=== PATIENT | male | born 1965 | race Caucasian/White ===

== ENCOUNTER 2017-04-01 15:50 | Emergency (ER) | payer OTHER ==
[~2017-04-01 15:50] MED LIST: CIPRO PO; GLU850 PO; MEV20 PO; PROMETHAZINE D118 ML PO; TAP5 PO; ZES20 PO
== END 2017-04-01 16:37 | disposition left against medical advice (07) ==
LOC: ED 15:50
DX: Z53.21 Procedure and treatment not carried out due to patient leaving prior to being seen by health care provider (principal)

== ENCOUNTER 2017-04-02 08:46 | Emergency (ER) | payer OTHER ==
[2017-04-02 09:43] VITALS: BP 130/74
== END 2017-04-02 09:44 | disposition home or self-care (01) ==
LOC: ED 08:46
DX: G44.209 Tension-type headache, unspecified, not intractable (principal)

== ENCOUNTER 2017-08-09 07:03 | Emergency (ER) | payer OTHER ==
[~2017-08-09 07:03] MED LIST changes: +ANTIVERT12.5 MG PO; +DEC150 PO; +FIORICET1 TAB PO; +FLO4 PO; +GLYBURIDE5 MG PO; +LASIX20 MG PO; +METFORMIN ER500 M1 PO; +METFORMIN HCL500 MG PO; +MOTRIN600 MG PO; +PEP20 PO; +ROB750 PO; +SOD1 PO
== END 2017-08-09 08:28 | disposition left against medical advice (07) ==
LOC: ED 07:03
DX: Z53.21 Procedure and treatment not carried out due to patient leaving prior to being seen by health care provider (principal)

== ENCOUNTER 2017-08-10 14:13 | Emergency (ER) | payer OTHER ==
[~2017-08-10] VITALS: Ht 162.6 cm; Wt 59.4 kg
[2017-08-10 14:49] VITALS: Ht 162.6 cm; Wt 59.4 kg
[2017-08-10 21:04] VITALS: BP 135/78
== END 2017-08-10 21:04 | disposition home or self-care (01) ==
LOC: ED 14:13
DX: B34.9 Viral infection, unspecified (principal); E11.9 Type 2 diabetes mellitus without complications
CPT/HCPCS: J1100; J1885

== ENCOUNTER 2018-01-13 09:17 | Emergency (ER) | payer OTHER ==
[~2018-01-13] VITALS: Ht 160 cm; Wt 59.0 kg
[2018-01-13 09:20] VITALS: Ht 160 cm; Wt 59.0 kg
[2018-01-13 10:31] LABS: BASOPHIL % 0.8 % (0-2); PLATELET COUNT 255 x10^3mcL (130-400); RED CELL DISTRIBUTION WIDTH 13.4 % (11.5-14.5)
[2018-01-13 10:43] LABS: ALBUMIN 4.2 g/dL (3.4-5.0); ALKALINE PHOSPHATASE 84 U/L (46-116); ALT/SGPT 44 U/L (16-63); AST/SGOT 40 U/L (15-37); CALCIUM 9.6 mg/dL (8.5-10.1); CARBON DIOXIDE 29.4 mmol/L (21-32); CHLORIDE SERUM 103 mmol/L (98-107); CREATININE SERUM 0.9 mg/dL (0.7-1.3); GFR1 > 60 mL/min; GLUCOSE SERUM 112 mg/dL (74-106); SODIUM SERUM 139 mmol/L (136-145)
[2018-01-13 10:49] LABS: POTASSIUM SERUM 5.9 mmol/L (3.5-5.1); TOTAL PROTEIN, SERUM 8.5 g/dL (6.4-8.2)
[2018-01-13 11:53] VITALS: BP 154/91
== END 2018-01-13 11:53 | disposition home or self-care (01) ==
LOC: ED 09:17
PROVIDERS: Emergency Medicine
DX: G44.209 Tension-type headache, unspecified, not intractable (principal); R42 Dizziness and giddiness; R19.7 Diarrhea, unspecified; E87.5 Hyperkalemia; J02.9 Acute pharyngitis, unspecified; E11.9 Type 2 diabetes mellitus without complications
CPT/HCPCS: 20552; 36415

== ENCOUNTER 2018-06-04 19:46 | Emergency (ER) | payer OTHER ==
[~2018-06-04] VITALS: Ht 160 cm; Wt 57.6 kg
[2018-06-04 19:51] VITALS: Ht 160 cm; Wt 57.6 kg
[2018-06-04 21:14] LABS: BASOPHIL % 0.6 % (0-2); PLATELET COUNT 277 x10^3mcL (130-400); RED CELL DISTRIBUTION WIDTH 13.5 % (11.5-14.5)
[2018-06-04 21:37] LABS: CALCIUM 8.8 mg/dL (8.5-10.1); CARBON DIOXIDE 24.7 mmol/L (21-32); CHLORIDE SERUM 99 mmol/L (98-107); GFR1 > 60 mL/min; GLUCOSE SERUM 161 mg/dL (74-106); SODIUM SERUM 132 mmol/L (136-145)
[2018-06-04 21:48] LABS: ALBUMIN 3.8 g/dL (3.4-5.0); ALKALINE PHOSPHATASE 65 U/L (46-116); ALT/SGPT 29 U/L (16-63); AST/SGOT 19 U/L (15-37); TOTAL PROTEIN, SERUM 7.4 g/dL (6.4-8.2)
[2018-06-05 00:15] VITALS: BP 120/76
== END 2018-06-05 00:15 | disposition home or self-care (01) ==
LOC: ED 19:46
PROVIDERS: Emergency Medicine
DX: K59.00 Constipation, unspecified (principal); R10.12 Left upper quadrant pain; R10.32 Left lower quadrant pain; E11.9 Type 2 diabetes mellitus without complications; E78.00 Pure hypercholesterolemia, unspecified; Z79.899 Other long term (current) drug therapy
CPT/HCPCS: 83880; J1885; J3010; J8597; Q0092

== ENCOUNTER 2018-09-15 03:03 | Emergency (ER) | payer OTHER ==
[~2018-09-15] VITALS: Ht 160 cm; Wt 57.2 kg
[2018-09-15 03:06] VITALS: Ht 160 cm; Wt 57.2 kg
[2018-09-15 04:01] VITALS: BP 116/64
== END 2018-09-15 04:01 | disposition home or self-care (01) ==
LOC: ED 03:03
DX: J20.9 Acute bronchitis, unspecified (principal); M54.6 Pain in thoracic spine; E11.9 Type 2 diabetes mellitus without complications; E78.00 Pure hypercholesterolemia, unspecified
CPT/HCPCS: J7512

== ENCOUNTER 2018-10-12 16:30 | Emergency (ER) | payer OTHER ==
[~2018-10-12] VITALS: Ht 167.6 cm; Wt 57.2 kg
[2018-10-12 16:37] VITALS: Ht 167.6 cm; Wt 57.2 kg
[2018-10-12 18:14] LABS: PLATELET COUNT 277 x10^3mcL (130-400); RED CELL DISTRIBUTION WIDTH 12.8 % (11.5-14.5)
[2018-10-12 18:27] LABS: CALCIUM 9.3 mg/dL (8.5-10.1); CARBON DIOXIDE 28.5 mmol/L (21-32); CHLORIDE SERUM 101 mmol/L (98-107); CREATININE SERUM 0.9 mg/dL (0.7-1.3); GFR1 > 60 mL/min; GLUCOSE SERUM 195 mg/dL (74-106); POTASSIUM SERUM 5.3 mmol/L (3.5-5.1); SODIUM SERUM 134 mmol/L (136-145)
[2018-10-12 18:32] LABS: ALBUMIN 4.1 g/dL (3.4-5.0); ALKALINE PHOSPHATASE 74 U/L (46-116); ALT/SGPT 33 U/L (16-63); AST/SGOT 29 U/L (15-37); CHOLESTEROL 186 mg/dL (<200); HDL CHOLESTEROL 54 mg/dL (40-60); TOTAL PROTEIN, SERUM 8.2 g/dL (6.4-8.2)
[2018-10-12 19:23] VITALS: BP 160/87
== END 2018-10-12 19:23 | disposition home or self-care (01) ==
LOC: ED 16:30
PROVIDERS: Emergency Medicine
DX: R51 Headache (principal); R42 Dizziness and giddiness; E11.9 Type 2 diabetes mellitus without complications; E78.00 Pure hypercholesterolemia, unspecified
CPT/HCPCS: 36415; J1885; Q0092

== ENCOUNTER 2018-12-03 22:06 | Emergency (ER) | payer OTHER ==
[~2018-12-03] VITALS: Ht 160 cm; Wt 59.4 kg
[2018-12-03 22:08] VITALS: Ht 160 cm; Wt 59.4 kg
[2018-12-03 23:18] LABS: BASOPHIL % 0.6 % (0-2); PLATELET COUNT 264 x10^3mcL (130-400)
[2018-12-03 23:27] LABS: CALCIUM 9.2 mg/dL (8.5-10.1); CARBON DIOXIDE 25.1 mmol/L (21-32); CHLORIDE SERUM 99 mmol/L (98-107); CREATININE SERUM 0.8 mg/dL (0.7-1.3); GFR1 > 60 mL/min; GLUCOSE SERUM 109 mg/dL (74-106); POTASSIUM SERUM 3.8 mmol/L (3.5-5.1); SODIUM SERUM 135 mmol/L (136-145)
[2018-12-03 23:32] LABS: ALBUMIN 4.3 g/dL (3.4-5.0); ALKALINE PHOSPHATASE 66 U/L (46-116); ALT/SGPT 34 U/L (16-63); AST/SGOT 29 U/L (15-37); BILIRUBIN TOTAL 0.7 mg/dL (0.20-1.00); TOTAL PROTEIN, SERUM 7.6 g/dL (6.4-8.2)
[2018-12-04 03:28] VITALS: BP 131/76
== END 2018-12-04 03:28 | disposition home or self-care (01) ==
LOC: ED 22:06
DX: R07.89 Other chest pain (principal); F41.9 Anxiety disorder, unspecified; E11.9 Type 2 diabetes mellitus without complications; E78.00 Pure hypercholesterolemia, unspecified
CPT/HCPCS: J7030

== ENCOUNTER 2019-05-26 12:45 | Emergency (ER) | payer MEDICAID ==
[~2019-05-26] VITALS: Ht 160 cm; Wt 55.3 kg
[2019-05-26 12:49] VITALS: Ht 160 cm; Wt 55.3 kg
[2019-05-26 13:38] LABS: BASOPHIL % 0.7 % (0-2); PLATELET COUNT 281 x10^3mcL (130-400); RED CELL DISTRIBUTION WIDTH 13.4 % (11.5-14.5)
[2019-05-26 14:02] LABS: CALCIUM 9.2 mg/dL (8.5-10.1); CARBON DIOXIDE 26.2 mmol/L (21-32); CHLORIDE SERUM 99 mmol/L (98-107); CREATININE SERUM 0.8 mg/dL (0.7-1.3); GFR1 > 60 mL/min; GLUCOSE SERUM 182 mg/dL (74-106); POTASSIUM SERUM 4.3 mmol/L (3.5-5.1); SODIUM SERUM 134 mmol/L (136-145)
[2019-05-26 14:09] LABS: ALBUMIN 4.1 g/dL (3.4-5.0); ALKALINE PHOSPHATASE 75 U/L (46-116); ALT/SGPT 26 U/L (16-63); AST/SGOT 21 U/L (15-37); BILIRUBIN TOTAL 1.06 mg/dL (0.20-1.00); TOTAL PROTEIN, SERUM 8.1 g/dL (6.4-8.2)
[2019-05-26 15:24] VITALS: BP 135/87
== END 2019-05-26 15:24 | disposition home or self-care (01) ==
LOC: ED 12:45
PROVIDERS: Emergency Medicine
DX: E11.65 Type 2 diabetes mellitus with hyperglycemia (principal); R07.89 Other chest pain; R51 Headache; E78.00 Pure hypercholesterolemia, unspecified; R20.0 Anesthesia of skin
CPT/HCPCS: 82962; J1885; J2405; J7030; J8597; Q0092

== ENCOUNTER 2019-07-15 21:17 | Emergency (ER) | payer SELFPAY ==
[~2019-07-15] VITALS: Ht 167.6 cm; Wt 55.8 kg
[2019-07-15 21:37] VITALS: BP 160/92
== END 2019-07-16 00:05 | disposition left against medical advice (07) ==
LOC: ED 21:17
DX: Z53.21 Procedure and treatment not carried out due to patient leaving prior to being seen by health care provider (principal)
CPT/HCPCS: 82962

== ENCOUNTER 2019-07-23 21:47 | Emergency (ER) | payer SELFPAY ==
[~2019-07-23] VITALS: Ht 170.2 cm; Wt 53.1 kg
[2019-07-23 22:06] VITALS: Ht 170.2 cm; Wt 53.1 kg
[2019-07-23 23:38] LABS: BASOPHIL % 0.6 % (0-2); PLATELET COUNT 283 x10^3mcL (130-400)
[2019-07-23 23:57] LABS: CALCIUM 9.6 mg/dL (8.5-10.1); CARBON DIOXIDE 29.6 mmol/L (21-32); CHLORIDE SERUM 95 mmol/L (98-107); CREATININE SERUM 0.9 mg/dL (0.7-1.3); GFR1 > 60 mL/min; GLUCOSE SERUM 365 mg/dL (74-106); POTASSIUM SERUM 4.7 mmol/L (3.5-5.1); SODIUM SERUM 133 mmol/L (136-145)
[2019-07-24 00:02] LABS: ALBUMIN 3.9 g/dL (3.4-5.0); ALKALINE PHOSPHATASE 90 U/L (46-116); ALT/SGPT 29 U/L (16-63); AST/SGOT 17 U/L (15-37); BILIRUBIN TOTAL 0.46 mg/dL (0.20-1.00); TOTAL PROTEIN, SERUM 7.9 g/dL (6.4-8.2)
[2019-07-24 03:41] VITALS: BP 114/66
== END 2019-07-24 03:41 | disposition home or self-care (01) ==
LOC: ED 21:47
DX: E11.65 Type 2 diabetes mellitus with hyperglycemia (principal); R05 Cough; R10.32 Left lower quadrant pain
CPT/HCPCS: 82962; J2270; J2405; Q9967

== ENCOUNTER 2019-08-10 03:31 | Emergency (ER) | payer SELFPAY ==
[~2019-08-10] VITALS: Ht 165.1 cm; Wt 51.7 kg
[2019-08-10 03:36] VITALS: Ht 165.1 cm; Wt 51.7 kg
[2019-08-10 04:34] LABS: CALCIUM 9.3 mg/dL (8.5-10.1); CARBON DIOXIDE 27.7 mmol/L (21-32); CHLORIDE SERUM 90 mmol/L (98-107); CREATININE SERUM 0.9 mg/dL (0.7-1.3); GFR1 > 60 mL/min; GLUCOSE SERUM 393 mg/dL (74-106); POTASSIUM SERUM 4.5 mmol/L (3.5-5.1); SODIUM SERUM 129 mmol/L (136-145)
[2019-08-10 04:36] LABS: microscopic required? YES; urine erythrocyte TRACE (NEGATIVE)
[2019-08-10 04:42] LABS: ALBUMIN 4.2 g/dL (3.4-5.0); ALKALINE PHOSPHATASE 87 U/L (46-116); ALT/SGPT 54 U/L (16-63); AST/SGOT 27 U/L (15-37); BILIRUBIN TOTAL 0.81 mg/dL (0.20-1.00)
[2019-08-10 04:43] LABS: TOTAL PROTEIN, SERUM 8.4 g/dL (6.4-8.2)
[2019-08-10 04:51] LABS: BASOPHIL % 0.8 % (0-2); PLATELET COUNT 292 x10^3mcL (130-400); RED CELL DISTRIBUTION WIDTH 12.8 % (11.5-14.5)
[2019-08-10 06:11] VITALS: BP 119/73
== END 2019-08-10 06:11 | disposition home or self-care (01) ==
LOC: ED 03:31
PROVIDERS: Emergency Medicine
DX: E11.65 Type 2 diabetes mellitus with hyperglycemia (principal); F41.9 Anxiety disorder, unspecified; E11.9 Type 2 diabetes mellitus without complications; E78.00 Pure hypercholesterolemia, unspecified
CPT/HCPCS: 82962; J1815; J1885; J7030; Q0092

== ENCOUNTER 2020-05-02 15:43 | Emergency (ER) | payer OTHER ==
[~2020-05-02] VITALS: Ht 160 cm; Wt 55.3 kg
[2020-05-02 15:56] VITALS: Ht 160 cm; Wt 55.3 kg
[2020-05-02 16:55] LABS: microscopic required? NO
[2020-05-02 17:17] LABS: urine erythrocyte NEGATIVE (NEGATIVE)
[2020-05-02 17:53] LABS: BASOPHIL % 1.2 % (0-2); PLATELET COUNT 300 x10^3mcL (130-400); RED CELL DISTRIBUTION WIDTH 13.3 % (11.5-14.5)
[2020-05-02 17:57] LABS: CALCIUM 9.1 mg/dL (8.5-10.1); CARBON DIOXIDE 25.1 mmol/L (21-32); CHLORIDE SERUM 94 mmol/L (98-107); CREATININE SERUM 0.8 mg/dL (0.7-1.3); GFR1 > 60 mL/min; GLUCOSE SERUM 202 mg/dL (74-106); POTASSIUM SERUM 3.8 mmol/L (3.5-5.1); SODIUM SERUM 128 mmol/L (136-145)
[2020-05-02 18:02] LABS: ALKALINE PHOSPHATASE 66 U/L (46-116); ALT/SGPT 24 U/L (16-63); AST/SGOT 21 U/L (15-37); BILIRUBIN TOTAL 0.9 mg/dL (0.20-1.00)
[2020-05-02 18:50] VITALS: BP 106/68
== END 2020-05-02 18:50 | disposition home or self-care (01) ==
LOC: ED 15:43
PROVIDERS: Emergency Medicine
DX: R51 Headache (principal); R42 Dizziness and giddiness; E11.9 Type 2 diabetes mellitus without complications; E78.00 Pure hypercholesterolemia, unspecified
CPT/HCPCS: J1885; J7030